=== PATIENT | male | born 1980 | race Caucasian/White ===

== ENCOUNTER 2022-10-20 22:13 | Emergency (ER) | payer OTHER ==
[~2022-10-20] VITALS: Ht 172.7 cm; Wt 76.2 kg
[2022-10-20] MEDS ORDERED: PHENAZOPYRIDIN200 MG PO (22:29)
[2022-10-21] MEDS ORDERED: CIPRO500 MG PO (02:55)
== END 2022-10-21 03:11 | disposition home or self-care (01) ==
LOC: ER 22:13
DX: N39.0 Urinary tract infection, site not specified (principal); B96.20 Unspecified Escherichia coli [E. coli] as the cause of diseases classified elsewhere